=== PATIENT | female | born 1980 | race Caucasian/White ===

== ENCOUNTER 2020-03-21 07:26 | Day surgery (SDC) | payer MEDICAID, SELFPAY ==
[~2020-03-21] VITALS: Ht 167.6 cm; Wt 106.6 kg
[2020-03-21] MEDS ORDERED: MIDAZOLAM 2 MG/2 ML VIAL ONE (09:04)
[2020-03-21] MEDS ORDERED: fentaNYL citrate 0.05 MG/ML VIAL ONE (09:04)
[2020-03-21] MEDS ORDERED: diphenhydrAMINE 50 MG/ML VIAL ONE (09:04)
[2020-03-21] MEDS ORDERED: LIDOCAINE 2% 100 MG/5 ML UJET TP ONE (09:05)
[2020-03-21] MEDS ORDERED: MIDAZOLAM 2 MG/2 ML VIAL IVP ONE (10:15)
[2020-03-21] MEDS ORDERED: fentaNYL citrate 0.05 MG/ML VIAL IVP ONE (10:15)
[2020-03-21] MEDS ORDERED: diphenhydrAMINE 50 MG/ML VIAL IVP ONE (10:15)
== END 2020-03-21 10:45 | disposition home or self-care (01) ==
LOC: MDS 07:26 → MFCC 07:27 → MDS 10:45
PROVIDERS: ATTEND Internal Medicine Gastroenterology
DX: D64.9 Anemia, unspecified (principal); K31.7 Polyp of stomach and duodenum; K59.00 Constipation, unspecified; K92.1 Melena; Z79.899 Other long term (current) drug therapy; Z20.828 Contact with and (suspected) exposure to other viral communicable diseases
CPT/HCPCS: 43239; 45380; 81025; 88305; 88312; 88313; J1200; J2250; J3010; U0003